=== PATIENT | female | born 1975 | race Caucasian/White ===

== ENCOUNTER → 2017-02-11 | Outpatient (CLI) | payer MEDICAID ==
[2017-02-11 09:20] LABS: Basophils % (A) 1 %; CH 28.2; CHCM 33.3; Eosinophils # (A) 0.1 k/uL (0-0.7); Eosinophils % (A) 2 %; HCT 36.6 % (34.0-46.0); HDW 3.15; HGB 11.5 gm/dL (11.4-16.0); Luc # (Auto) 0.11; Luc % (Auto) 2; Lymphocytes # (A) 1.3 k/uL (1.0-4.8); Lymphocytes % (A) 22 %; MCH 26.8 pg (25.0-35.0); MCHC 31.5 g/dL (31.0-37.0); MCV 85.2 fL (80.0-100.0); Mean Platelet Volume 7.4; Monocytes # (A) 0.3 k/uL (0-1.0); Monocytes % (A) 6 %; Neutrophils % (A) 68 %; RDW 14.9 % (11.5-15.5); WBC 5.9 k/uL (3.8-10.6); WBC (Perox) 6.24
== END ==
LOC: LABPAT 08:36
PROVIDERS: ATTEND Obstetrics & Gynecology
DX: Z01.812 Encounter for preprocedural laboratory examination (principal)
CPT/HCPCS: 85025

== ENCOUNTER 2017-02-12 06:06 | Day surgery (SDC) | payer MEDICAID ==
[2017-02-08 09:11] VITALS: BMI 29.8
--- NOTE | 2017-02-11 07:47 | P.HPOB ---
History of Present Illness H&P Date: 02/11/17 Chief Complaint: High grade cervical dysplasia This patient is a pleasant 41 yr female who initially presented to me on December 19 for a yearly examination. Pap smear at that time demonstrated high grade squamous lesion. Colposcopy on January 10 confirmed the high grade changes. She now presents for colposcopy and LEEP excision of the ecto/ endocervix. Review of Systems Constitutional: Denies chills, Denies fever Ears, nose, mouth and throat: Denies headache, Denies sore throat Cardiovascular: Denies chest pain, Denies shortness of breath Respiratory: Denies cough Gastrointestinal: Denies abdominal pain, Denies diarrhea, Denies nausea, Denies vomiting Genitourinary: Reports as per HPI Menstruation: Reports period normal Musculoskeletal: Denies myalgias Integumentary: Denies pruritus, Denies rash Neurological: Denies numbness, Denies weakness Psychiatric: Denies anxiety, Denies depression Endocrine: Denies fatigue, Denies weight change Past Medical History Past Medical History: No Reported History History of Any Multi-Drug Resistant Organisms: None Reported Past Surgical History: Appendectomy Additional Past Surgical History / Comment(s): cleft palate repair, benign mass on ovary; D&C Past Anesthesia/Blood Transfusion Reactions: No Reported Reaction Past Psychological History: No Psychological Hx Reported Smoking Status: Never smoker Past Alcohol Use History: None Reported Past Drug Use History: None Reported Additional History: times 2. EAB times 1 - Past Family History Mother Family Medical History: No Reported History Medications and Allergies Home Medications Medication Instructions Recorded Confirmed Type Ibuprofen [Motrin] 600 mg PO Q6HR PRN 02/08/17 02/08/17 History Allergies Allergy/AdvReac Type Severity Reaction Status Date / Time No Known Allergies Allergy Verified 02/08/17 09:05 Exam - OBG Physical Exam Abdomen: bowel sounds normal, no diffuse tenderness, no bruit present, no guarding noted, no hepatomegaly, no splenomegaly, no mass Vulva: both: normal Vagina: normal moisture, no discharge Cervix: no discharge Uterus: normal size, normal contour Adnexa: both: normal Results Cervical biopsy on January 10 showed HGSIL at 6 and 12 oclock. ECC demonstrated probable LGSIL. Assessment and Plan (1) High grade squamous intraepithelial cervical dysplasia Narrative/Plan: This is a pleasant 41 yr female with high grade cervical changes who presents for colposcopy and LEEP excision of the endo/ectocervix. I have discussed this surgery in detail with Radha including the risks: infection, bleeding, possible cervical incompetence and future loss. We also discussed the risks of possible positive margins and need for further surgery. All of the patient's questions were answered and a written consent obtained. Status: Acute
[~2017-02-12 06:06] MED LIST: DEXAMETHASONE SOD PHOSPHATE 10 MG/ML 1 ML VIAL IV ONE; FAMOTIDINE 20 MG/2 ML VIAL IV PRN; HYDROmorphone 1 MG/ML 1 ML SYRINGE IVP PRN; LACTATED RINGERS 1,000 ML IV SCH; LIDOCAINE 1% 20 ML VIAL (10MG/ML) FOR IV START INTRADERMA PRN; MIDAZOLAM 2 MG/2 ML VIAL IV PRN; ONDANSETRON 4 MG/2 ML VIAL IVP ONE; Pre Op ABX Message 1 EACH MISC MISCELLANE ONE; SCOPOLAMINE 1.5MG/72HR PATCH TRANSDERM ONE
[2017-02-12] MEDS ORDERED: SUCCINYLCHOLINE CHLORIDE 100 MG/5 ML SYR IV ONE (07:00)
[2017-02-12] MEDS ORDERED: KETOROLAC 30 MG/ML 1 ML VIAL ONE (07:00)
[2017-02-12] MEDS ORDERED: fentaNYL (PF) 50 MCG/ML 2 ML AMP ONE (07:00)
[2017-02-12] MEDS ORDERED: MIDAZOLAM 2 MG/2 ML VIAL ONE (07:00)
[2017-02-12] MEDS ORDERED: PROPOFOL 10 MG/ML 20 ML VIAL IV ONE (07:00)
[2017-02-12] MEDS ORDERED: IODINE/POTASS IOD (LUGOLS) BTL TOPICAL ONE (07:16)
[2017-02-12] MEDS ORDERED: FERRIC SUBSULFATE (MONSELS) JAR TOPICAL ONE (07:20)
--- NOTE | 2017-02-12 07:37 | P.OP ---
Date of Procedure: 02/12/17 Preoperative Diagnosis: High-grade cervical dysplasia Postoperative Diagnosis: Same Procedure(s) Performed: Colposcopy with LEEP excision of the ectocervix and endocervix. Anesthesia: MARCIAA Surgeon: Wally Irwin Estimated Blood Loss (ml): 50 Urine output (ml): 10 Pathology: other (Ectocervix and endocervix) Condition: stable Disposition: PACU Indications for Procedure: Please see dictated H&P for intimate details of this patient's admission. In brief summary this is a pleasant 41-year-old female who presented to ct for a yearly examination was found to have a high-grade abnormal Pap smear. Colposcopy confirmed ectocervical high-grade cells. Patient now presents for colposcopy with LEEP excision of the ectocervix endocervix. Patient does understand the surgery including risks of infection, bleeding, possible cervical incompetence in future loss. All the patient's questions are answered and a written consent is obtained. Operative Findings: Patient had acetowhite changes based on Lugol solution on colposcopy. Description of Procedure: This patient is taken to the operating room where she is laid in the supine position. She subsequent undergoes general endotracheal anesthesia without incident. With an adequate level of anesthesia she is placed in the dorsal lithotomy position. She has a vaginal prep and drape bladder is drained for 10 mL of clear urine. Examination under anesthesia shows a mid position uterus. The laser speculum was placed into the vagina and the cervix is visualized. Colposcopy is performed at this time with Lugol solution. There of abnormality is demarcated. At this time the large LEEP loop was used at a 60/70 cutting cautery setting. One pass is made in the entire transformation zone of the ectocervix is removed. A second pass is made with the small LEEP loop of the endocervix. Both of these specimens are sent off to pathology. There is some brisk bleeding from the posterior cervix at this time which is cauterized and subsides. I also cauterize the ectocervical and endocervical margins. Excess fluid and hemostasis is noted at this time. For added hemostasis and Monsel solution was placed onto the cervix. Again excellent hemostasis is noted. This time the procedure is then terminated. Speculum was removed. Final inspection shows all be hemostatic. All counts are correct 3. There are no complications. Patient is awakened from anesthesia and taken to the recovery room in satisfactory condition.
[2017-02-12 07:56] VITALS: TEMP 97.6
[2017-02-12 08:34] VITALS: RESP 16
[2017-02-12 09:03] VITALS: BP 108/78; PULSE 71
== END 2017-02-12 09:23 | disposition home or self-care (01) ==
LOC: OR 06:06
PROVIDERS: ATTEND Obstetrics & Gynecology
DX: R87.613 High grade squamous intraepithelial lesion on cytologic smear of cervix (HGSIL) (principal)
CPT/HCPCS: 81025; 57460; J2250; J1100; J2405; J3010; J1885; J0330; J2704; 88305; 88307

== ENCOUNTER → 2019-02-17 | Outpatient (CLI) | payer MEDICAID ==
--- NOTE | 2019-02-17 11:04 | XR ---
EXAMINATION TYPE: XR foot complete LT DATE OF EXAM: 02/17/2019 COMPARISON: None HISTORY: Left foot pain TECHNIQUE: Three-view left foot FINDINGS: Joint spaces are preserved. Alignment is normal. No acute fractures or dislocations are clarita dent. Plantar calcaneal heel spur is present. IMPRESSION: 1. Plantar calcaneal heel spur. 2. Left foot is otherwise unremarkable. 3. Follow-up exams can be performed 10 days from acute trauma for continued pain.
== END | disposition home or self-care (01) ==
LOC: RADXRMAIN 09:06
PROVIDERS: ATTEND Nurse Practitioner
DX: M77.32 Calcaneal spur, left foot (principal)

== ENCOUNTER → 2020-10-20 | Outpatient (CLI) | payer MEDICAID ==
[2020-10-21 02:22] LABS: T4, Free (Free Thyroxine) 0.9 ng/dL (0.80-1.80)
== END | disposition home or self-care (01) ==
LOC: LABWHC1 15:08
PROVIDERS: ATTEND Family Medicine
DX: R53.83 Other fatigue (principal); L65.9 Nonscarring hair loss, unspecified
CPT/HCPCS: 36415; 84439; 84443

== ENCOUNTER → 2020-11-28 | Outpatient (CLI) | payer MEDICAID ==
--- NOTE | 2020-11-29 08:00 | US ---
EXAMINATION TYPE: US pelvis complete transvag DATE OF EXAM: 11/28/2020 COMPARISON: CLINICAL HISTORY: N92.0 menstruation with regular cycle. Irregular menses. Patient states having chr onic generalized pelvic pain. TECHNIQUE: Transvaginal (TV) and Transabdominal (TA) . Transabdominal sonographic images of the pel vis were acquired. Transvaginal sonographic images were medically necessary to better assess the fol lowing anatomy: Endometrium and ovaries Date of LMP: 11/18/2020, EXAM MEASUREMENTS: Uterus: 8.4 x 4.6 x 4.4 cm Endometrial Stripe: 1.0 cm Right Ovary: 3.6 x 2.4 x 2.1 cm Left Ovary: 3.0 x 1.9 x 1.1 cm 1. Uterus: Anteverted Heterogenous. No prominent masses or lesions seen. 2. Endometrium: No abnormality visualized 3. Right Ovary: Dominant follicle visualized = 2.1 x 1.9 x 2.0 cm 4. Left Ovary: Follicles seen 5. Bilateral Adnexa: No abnormality visualized 6. Posterior cul-de-sac: no free fluid seen 7. Cervix- Nabothian cysts IMPRESSION: 1. Heterogenous uterine myometrium is nonspecific. 2. Dominant right ovarian follicle could be confirmed with follow-up study in 6 weeks.
== END | disposition home or self-care (01) ==
LOC: RADUSWWP 16:17
PROVIDERS: ATTEND Obstetrics & Gynecology
DX: R93.89 Abnormal findings on diagnostic imaging of other specified body structures (principal); N92.0 Excessive and frequent menstruation with regular cycle
CPT/HCPCS: 76830; 76856

== ENCOUNTER → 2021-04-28 | Outpatient (CLI) | payer MEDICAID ==
[2021-04-28 11:37] LABS: Basophils # (A) 0.04 X 10*3/uL (0.00-0.10); Basophils % (A) 0.6 %; Eosinophils # (A) 0.07 X 10*3/uL (0.04-0.35); Eosinophils % (A) 1.1 %; HCT 38.5 % (37.2-46.3); HGB 12.6 g/dL (12.0-15.0); Lymphocytes # (A) 1.27 X 10*3/uL (0.90-5.00); Lymphocytes % (A) 19.6 %; MCH 30.1 pg (27.0-32.0); MCHC 32.7 g/dL (32.0-37.0); MCV 91.9 fL (80.0-97.0); Mean Platelet Volume 11.4 fL (9.5-12.2); Monocytes # (A) 0.39 X 10*3/uL (0.20-1.00); Neutrophils # (A) 4.68 X 10*3/uL (1.80-7.70); Neutrophils % (A) 72.4 %; Platelet Count 182 X 10*3/uL (140-440); RBC 4.19 X 10*6/uL (4.10-5.20); RDW 13.9 % (11.5-14.5); WBC 6.47 X 10*3/uL (4.50-10.00)
[2021-04-28 13:45] LABS: African American GFR (CKD) 129.4 (60.0-200.0); Albumin 4.4 g/dL (3.80-4.90); Albumin/Globulin Ratio 1.91 (1.60-3.17); Anion Gap 5.8 mmol/L (4.00-12.00); BUN/Creat Ratio 23.33 Ratio (12.00-20.00); Calcium 9.1 mg/dL (8.7-10.3); Carbon Dioxide 26.2 mmol/L (21.6-31.8); Chol/HDL Ratio 3.04; Globulin 2.3 g/dL (1.6-3.3); LDL Cholesterol,Calculated 89.8 mg/dL (0.0-131.0); Non-African American GFR(CKD) 111.6 (60.0-200.0); Total Bilirubin 0.5 mg/dL (0.3-1.2); Total Protein 6.7 g/dL (6.2-8.2); VLDL Calculation 20.2 mg/dL (5.00-40.00)
== END | disposition home or self-care (01) ==
LOC: LABWHC1 07:50
PROVIDERS: ATTEND Family Medicine
DX: Z00.00 Encounter for general adult medical examination without abnormal findings (principal)
CPT/HCPCS: 36415; 80053; 80061; 84439; 84443; 85025